=== PATIENT | female | born 2005 | race Caucasian/White ===

== ENCOUNTER 2024-04-11 13:07 | Emergency (ER) | payer SELFPAY ==
[~2024-04-11] VITALS: Ht 157.5 cm; Wt 54.0 kg
[2024-04-11 13:09] VITALS: BP 115/77; PULSE 107; RESP 22; TEMP 98.2; O2SAT 97
== END 2024-04-11 14:57 | disposition left against medical advice (07) ==
LOC: ER 13:56
DX: T65.91XA Toxic effect of unspecified substance, accidental (unintentional), initial encounter (principal); Y92.89 Other specified places as the place of occurrence of the external cause
CPT/HCPCS: 99283